=== PATIENT | female | born 2000 | race Caucasian/White ===

== ENCOUNTER 2023-08-09 22:02 | Emergency (ER) | payer BC, SELFPAY ==
[2023-08-09 22:06] VITALS: BP 126/86
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
[2023-08-09 23:06] VITALS: BMI 18.4
== END 2023-08-10 00:10 | disposition home or self-care (01) ==
LOC: EMR 22:02
PROVIDERS: EMERGENCY PHYSICIAN Emergency Medicine; FAMILY PHYSICIAN Nurse Practitioner Family
DX: S50.02XA Contusion of left elbow, initial encounter (principal); W51.XXXA Accidental striking against or bumped into by another person, initial encounter; R03.0 Elevated blood-pressure reading, without diagnosis of hypertension
CPT/HCPCS: 99283; 73080